=== PATIENT | male | born 1945 | race Caucasian/White ===

== ENCOUNTER 2017-11-09 22:25 | Emergency (ER) | payer SELFPAY ==
--- NOTE | 2017-11-09 22:36 | EDPHY ---
H & P Time Seen by Provider: 11/09/17 22:25 HPI/ROS: Chief Complaint: Fall, head laceration, alcohol intoxication HPI: 72-year-old male was at a bar [facility] when he had a mechanical fall. Witnesses saw him tripped. He fell forward striking his forehead. He sustained a laceration. Uncertain whether there was a loss of consciousness. Patient does not recall events. EMS states that he has been intermittently hypoxic. He does not have a history of COPD. States he does not smoke and has never smoked. Does have a history of type 2 diabetes. He is currently without complaint. ROS: 10 point Review of Systems is negative except as noted in the HPI. PMH: Type 2 diabetes Social History: No smoking, occasional alcohol, no recreational drug use Family History: non-contributory Physical Exam: Gen: Awake, Alert, Airway Intact HEENT: Head: He has a 5 mm laceration on his right forehead Eyes: PERRLA, EOMI, he has got ecchymosis over his upper right eyelid, no hyphema, no subconjunctival hemorrhage Nose: No epistaxis Mouth: Normal dentition, Airway patent Face: No deformity Neck: non-tender, cervical collar in place Chest: non-tender, lungs CTA Heart: normal heart tones Abd: soft, non-tender, atraumatic Pelvis: non-tender, stable to AP and Lateral compression Back: atraumatic, no midline tenderness Ext: atramatic, full ROM Skin: no rash Neuro: CN II-XII intact, Strength 5/5 in all extremities, sensation intact in all extremities Constitutional: Initial Vital Signs Temperature (C) 36.5 C 11/09/17 22:36 Heart Rate 72 11/09/17 22:36 Respiratory Rate 18 11/09/17 22:36 Blood Pressure 119/77 11/09/17 22:36 O2 Sat (%) 94 11/09/17 22:36 O2 Delivery Mode Room Air Allergies/Adverse Reactions: No Known Allergies Allergy (Unverified 11/09/17 22:38) Home Medications: Medication Instructions Recorded Metformin HCl 11/09/17 Medical Decision Making - Diagnostics Imaging Results: Imaging Impressions Cervical Spine CT 11/09/17 22:30 Impression: 1. No acute posttraumatic abnormality identified. If there is persistent pain or neurologic deficit, consider MRI and/or flexion and extension views if clinically indicated. 2. Multilevel degenerative change as above with moderate to severe spinal canal narrowing at C6-C7. 3. Fluid distention esophagus, likely related to reflux. 4. Additional findings as above. Findings discussed with Edis Cramer MD 11/09/2017 at 23:05. Head CT 11/09/17 22:30 Impression: 1.Subarachnoid hemorrhage over the right frontal lobe and in the right sylvian fissure. 2. Nondisplaced right orbital roof fracture extending to the right frontal sinus , with trace pneumocephalus. 3. Diffuse cerebral atrophy with periventricular and subcortical low attenuation consistent with chronic microvascular ischemic gliosis. 4. Additional findings as above. Findings discussed with Edis Cramer MD 11/09/2017 at 23:05. Imaging: Discussed imaging studies w/ call box wirer Radiologist ED Course/Re-evaluation: 72-year-old status post mechanical fall. He has a small subarachnoid hemorrhage and orbital roof fracture. Patient is awake and alert. He he is intoxicated. Have discussed with Dr. Montalvo, neurosurgery. He feels it is appropriate for the patient to go to the Ortho/Neuro floor. I have also discussed with Dr. Waite, trauma surgery. She will admit to her service for further care. - Data Points Laboratory Results: Laboratory Results 11/09/17 23:30 11/09/17 23:30 11/09/17 11/09/17 11/09/17 23:30 23:30 23:30 WBC 12.57 10^3/uL H 10^3/uL (3.80-9.50) RBC 4.82 10^6/uL 10^6/uL (4.40-6.38) Hgb 15.7 g/dL g/dL (13.7-17.5) Hct 44.4 % % (40.0-51.0) MCV 92.1 fL fL (81.5-99.8) MCH 32.6 pg pg (27.9-34.1) MCHC 35.4 g/dL g/dL (32.4-36.7) RDW 12.0 % % (11.5-15.2) Plt Count 175 10^3/uL 10^3/uL (150-400) MPV 11.1 fL fL (8.7-11.7) Neut % (Auto) 72.4 % % (39.3-74.2) Lymph % (Auto) 20.6 % % (15.0-45.0) Tama % (Auto) 5.4 % % (4.5-13.0) Eos % (Auto) 0.6 % % (0.6-7.6) Baso % (Auto) 0.4 % % (0.3-1.7) Nucleat RBC Rel Count 0.0 % % (0.0-0.2) Absolute Neuts (auto) 9.11 10^3/uL H 10^3/uL (1.70-6.50) Absolute Lymphs (auto) 2.59 10^3/uL 10^3/uL (1.00-3.00) Absolute Monos (auto) 0.68 10^3/uL 10^3/uL (0.30-0.80) Absolute Eos (auto) 0.07 10^3/uL 10^3/uL (0.03-0.40) Absolute Basos (auto) 0.05 10^3/uL 10^3/uL (0.02-0.10) Absolute Nucleated RBC 0.00 10^3/uL 10^3/uL (0-0.01) Immature Gran % 0.6 % % (0.0-1.1) Immature Gran # 0.07 10^3/uL 10^3/uL (0.00-0.10) PT 14.0 SEC SEC (12.0-15.0) INR 1.06 (0.83-1.16) APTT 28.2 SEC SEC (23.0-38.0) Sodium 138 mEq/L mEq/L (135-145) Potassium 3.9 mEq/L mEq/L (3.5-5.2) Chloride 103 mEq/L mEq/L (97-110) Carbon Dioxide 15 mEq/l L mEq/l (22-31) Anion Gap 20 mEq/L H mEq/L (8-16) BUN 9 mg/dL mg/dL (7-23) Creatinine 0.8 mg/dL mg/dL (0.7-1.3) Estimated GFR > 60 Glucose 248 mg/dL H mg/dL (70-100) Calcium 9.5 mg/dL mg/dL (8.5-10.4) Ethyl Alcohol 261 mg/dL H mg/dL (0-10) Departure - Departure Disposition: Against Medical Advice Clinical Impression: Subarachnoid hemorrhage, Orbital roof fracture Condition: Fair Instructions: Facial Fracture (ED), Subarachnoid Hemorrhage (DC) Additional Instructions: Please return to the ED if you have worsening symptom, follow up with neurosurgery as discussed. Referrals: Gerry Bateman MD [Medical Doctor] - Patient,NotPresent [Primary Care Provider] - As per Instructions
[2017-11-09 22:38] VITALS: TEMP 97.7
[2017-11-09 23:41] LABS: PLATELET COUNT 175 10^3/uL (150-400)
[2017-11-09 23:54] VITALS: BP 113/64; PULSE 78; RESP 16; O2SAT 95
[2017-11-10 00:27] LABS: INR 1.06 (0.83-1.16)
[2017-11-10] MEDS ORDERED: ONDANSETRON DISINTEGRATING 4 MG TAB PO PRN (00:51)
[2017-11-10] MEDS ORDERED: ACETAMINOPHEN 325 MG TAB PO PRN (00:51)
[2017-11-10] MEDS ORDERED: LORazepam 2 MG/ML INJ IVP PRN (00:51)
[2017-11-10] MEDS ORDERED: NALOXONE HCL 0.4 MG/ML INJ IVP PRN (00:51)
[2017-11-10] MEDS ORDERED: ONDANSETRON 4 MG/2 ML VIAL IVP PRN (00:51)
--- NOTE | 2017-11-10 00:53 | GHP ---
[f rep st] HISTORY AND PHYSICAL DATE OF ADMISSION: 11/09/2017 CHIEF COMPLAINT: Fall with head injury. HISTORY OF PRESENT ILLNESS: This patient is a 72-year-old man who reports he has not had any alcoholic beverages for over 6 months, who was involved in a fall. This was witnessed. He struck his head. He sustained a laceration. He presented to the Emergency Department. During his stay in the emergency department, he had a CT scan performed of his head, which showed a subarachnoid hemorrhage over the right frontal lobe and in the right sylvian fissure, and a nondisplaced right orbital roof fracture extending to the right frontal sinus with trace pneumocephalus. His CT scan of his neck did not show any post-acute traumatic abnormality. His blood alcohol level was 261. PAST MEDICAL HISTORY: Per chart review, diabetes. PAST SURGICAL HISTORY: Unable to be obtained. SOCIAL HISTORY: He reports that he has not used alcohol in over 6 months. I asked him how his blood alcohol level was 261, and he reports that he may have sipped on something socially. REVIEW OF SYSTEMS: Not able to be obtained. He feels great. PHYSICAL EXAMINATION: GENERAL: Rude, slightly disheveled, well-nourished man in emergency department. HEENT: He has a contusion over his right eye. CARDIAC: Regular rate. RESPIRATORY: No increased work of breathing. ASSESSMENT: This patient is a 72-year-old man. I explained to him the importance of needing to be watched overnight. He first told me that his dog was in his car, and I explained we could get someone to help with this. He explained that he does not drink alcohol and there was no reason for him to be admitted. I explained to him that he may not drink alcohol, but his blood alcohol level is 3 times the legal limit and that he has a small bleed in his head and a fracture on his forehead, and that it is not safe to go home. He then became verbally abusive and extremely rude, calling me "girl," and I asked him to please address me as Doctor, and he said, "You might be a doctor, but you 're still a woman." I said, that is not appropriate behavior. He then started to get up out of bed. We do not have any step-down unit beds or ICU beds at this time. I do not think, with this behavior, that he is safe to be on the floor unless he is with a sitter on a 1-on-1 situation, as this could put other staff and other patients in a less than ideal situation. We are trying to find an appropriate place for him to stay, as it is unclear whether his behavior is from his head injury or due to his alcohol intoxication. We will observe him in the Emergency Department until a step down unit bed is available /[id number]/MODL MTDD
[2017-11-10] MEDS ORDERED: LORazepam 2 MG/ML INJ ONE (01:27)
--- NOTE | 2017-11-10 03:53 | GDS ---
[f rep st] DISCHARGE SUMMARY REASON FOR ADMISSION: Fall. HISTORY OF PRESENT ILLNESS: The patient is a 72-year-old man, who had a witnessed fall earlier this evening while at a bar. His workup included a CT scan of his head and C-spine. He had a subarachnoid hemorrhage over the right frontal lobe and in the right sylvian fissure and a nondisplaced orbital roof fracture extending to the right frontal sinus with trace pneumocephalus. His CT scan of neck did not show post acute traumatic abnormality. His blood alcohol level on admission was 261. PRIMARY DIAGNOSIS: Subarachnoid hemorrhage. OTHER PERTINENT DIAGNOSES: 1. Acute alcohol intoxication. 2. Per chart review, diabetes. HOSPITAL COURSE: He was in the ER, and I did not feel that he was appropriate to go to the floor due to the amount of monitoring he needed, including security. It was unclear if this was due to his head injury or his acute alcohol intoxication. He was verbally abusive multiple times to staff. I admitted him for step-down unit status. Unfortunately, there was not a bed available, and so he was continuing to be monitored in the emergency room with q.4 hour neuro checks. Staff tried to give him medicine, and he removed his C- collar and ripped out his IV. I got multiple phone calls through the ER and came down to have a discussion with the patient about leaving against medical advice. He then accused me of saying that he refused medical treatment when he was compliant. I, in the presence of witnesses, explained that he has a choice of staying at our hospital where we could provide him continued observation by medically trained professionals or he could leave. It is against my advice for him to leave as, again, I am unclear if this is due to his blood alcohol level versus a head injury. This is a difficult situation as he is not complying with any recommended medical therapies and requiring security, as well as intensive nursing staff and also will not sign his AMA paperwork. I have offered for him to explain his needs so that we could hope to meet them in a safe environment. He again stated that he does not need anything and just wants to go home. I tried to explain to him the consequences of discharge that are unknown at this time, and again he repeated that he is fine and just wants to go home. I have tried multiple times to have him stay just for a few more hours to at least observe him while the alcohol intoxication wears off. I did call Dr. Bateman of Neurosurgery to discuss the case with him. He has reviewed his films and does not think that he would require a repeat head CT. He is willing to see the patient in his office as needed. I have spent over 2 hours with this situation either on the phone with multiple people in the ER present or consulting. /[id number]/MODL MTDD
== END 2017-11-10 02:15 | disposition left against medical advice (07) ==
LOC: EDUNIT# → UNDOADMOB 23:57
DX: S06.6X0A Traumatic subarachnoid hemorrhage without loss of consciousness, initial encounter (principal); S02.19XA Other fracture of base of skull, initial encounter for closed fracture; E11.9 Type 2 diabetes mellitus without complications; Z79.84 Long term (current) use of oral hypoglycemic drugs; W01.198A Fall on same level from slipping, tripping and stumbling with subsequent striking against other object, initial encounter
CPT/HCPCS: G0480; J2060